=== PATIENT | female | born 1960 | race Caucasian/White ===

== ENCOUNTER 2019-10-17 08:42 | Outpatient (CLI) | payer OTHER, SELFPAY ==
--- NOTE | ~2019-10-17 | XR_ITS ---
XR UGIAC w small bowel DATE: 10/17/2019 11:00 INDICATION: Early satiety, diarrhea TECHNIQUE: Air-contrast upper gastrointestinal series and serial images of the small bowel, spot imag es of the terminal ileum. 1.4 minutes fluoroscopy time DAP: 70.68 133 images COMPARISON: None FINDINGS: Normal deglutition and esophageal peristalsis. No stricture, mucosal fold thickening, erosi on, ulceration or intraluminal mass lesion of the esophagus, stomach or duodenum is detected. The duo denal bulb is normally shaped, without scarring. Normal C-loop of the duodenum. There is normal trans it of contrast material through the small bowel. No mucosal fold thickening of the small bowel. No st ricture, obstruction, abnormal dilatation, diverticulum or intraluminal filling defect is evident. Th e terminal ileum appears normal. IMPRESSION: Normal examination Reviewed, dictated and finalized at Location [facility]. Reviewed, dictated and finalized at location A. IMPRESSION: Normal examination
== END 2019-10-17 08:43 | disposition home or self-care (01) ==
LOC: ANHIMG 08:44
PROVIDERS: PCP Internal Medicine; Visit Provider Internal Medicine
DX: R19.7 Diarrhea, unspecified (principal); R68.81 Early satiety
CPT/HCPCS: 74246; 74248

== ENCOUNTER 2019-10-20 08:33 | Outpatient (CLI) | payer OTHER, SELFPAY ==
--- NOTE | ~2019-10-20 | US_ITS ---
EXAMINATION: US abdomen complete DATE: 10/20/2019 09:13 INDICATION: Diarrhea, unspecified. TECHNIQUE: Multiple grayscale and Doppler ultrasound images of the abdomen were obtained. COMPARISON: None FINDINGS: The visualized portions of the head and body of the pancreas are normal. The liver is hieu l without focal lesion. There is normal flow in main portal vein. The gallbladder is normal in size. No gallstones or gallbladder wall thickening. There was no sonographic Griffin sign. The common duct i s normal and measures 4 mm. The kidneys are normal in size. The spleen is normal in size. IMPRESSION: 1. Normal complete abdomen ultrasound. Reviewed, dictated and finalized at location A.
== END 2019-10-20 08:34 | disposition home or self-care (01) ==
PROVIDERS: PCP Internal Medicine; Visit Provider Internal Medicine
DX: R19.7 Diarrhea, unspecified (principal)
CPT/HCPCS: 76700

== ENCOUNTER 2019-10-31 09:45 | Outpatient (CLI) | payer OTHER, SELFPAY ==
[2019-11-05 13:22] LABS: Reference Lab Test Result Negative
== END 2019-10-31 09:46 | disposition home or self-care (01) ==
PROVIDERS: PCP Internal Medicine; Visit Provider Internal Medicine
DX: Z20.828 Contact with and (suspected) exposure to other viral communicable diseases (principal)
CPT/HCPCS: 36415; 86769

== ENCOUNTER 2020-10-15 08:00 | Outpatient (CLI) | payer OTHER, SELFPAY ==
--- NOTE | 2020-11-11 20:19 | WPDSLEEPSTUD ---
Sleep Study Date of Study: 10/15/20 Ordering Provider: Cesar Jeffrey MD Interpreting Physician: Luma Manning MD Sleep Study Type: Polysomnogram Height: 1.73 m Weight: 90.945 kg Body Mass Index: 30.4 Neck Circumference (inches): 16 [place]: 7 Reason for Sleep Study Fatigue worse over the last 6 months, required Adderall and Vyvanse Sleep History Argenis Nieto is a 60 year old female Who has excessive fatigue during the day. She manages this with Vyvanse and Adderall as well as caffeine. This is worsened over the last 6 months. This is severely impacted her lifestyle. She wakes up throughout the night and has difficulty waking in the morning. She has used medications to get to sleep including Lunesta than trazodone. She uses medicines to stay awake including Vyvanse Adderall and caffeine pills. She rarely awakens from sleep feeling short of breath, rarely awakens at night with heartburn, belching or coughing. She occasionally snores occasionally loudly. She does not have trouble sleeping with a cold. She does not wake up gasping for breath at night. She rarely has breathing problems at night reported to her by others. She frequently sweats excessively at night. She does not notice her heart pounding or beating irregularly at night. She does not fall asleep during the day, does not fall asleep involuntarily or while driving. She does not have loss of muscle tone with strong emotion. She frequently has daytime difficulties due to her excessive sleepiness. She does not feel paralyzed on waking or falling asleep. She frequently has vivid dreamlike scenes upon awakening or falling asleep. She does not feel afraid to go to sleep. She frequently has nightmares and frequently remembers her dreams. She constantly has racing thoughts, feelings of sadness, depression and anxiety. She constantly has muscular tension. She rarely notices parts of her body jerking. She does not kick at night. She rarely has crawling and aching feelings in her legs. She occasionally has leg pain during the night. She does not have morning jaw pain. She rarely grinds her teeth during sleep. She constantly is bothered by pain during the day. She has never awakened by pain during the night. She constantly wakes up feeling stiff in the morning occasionally with sore achy muscles. She rarely wakes up with pain in the neck or spine. She has headaches, dizziness, and concentration difficulties. She never awakens feeling refreshed. She has heartburn and nasal allergies. She reports 8 lb increase in the last year. Normal bedtime is 10:30 p.m. falling asleep within 20 minutes using a sleeping pill. She wakes typically twice at night to urinate. On average she stays awake for 5 minutes. These awakenings occurred about 24 hours after going to sleep. She wakes in the morning by 6:00 a.m. but does not get out of bed until 8:00 a.m.. Her weekend schedule is the same. She estimates getting about 7 hours of sleep at night. She describes herself as an introvert so it takes energy for her to socialize. She is too tired to socialize due to her fatigue and excessive sleepiness. She takes naps in the afternoon or evening. A short nap may be refreshing. She is usually drowsy in the morning for 2 hours or longer. Habits: Never smoked tobacco. Caffeine 2 cups of coffee per day. She also takes caffeine pills at times. No alcohol or recreational drugs. REPLACED BY [facility] Past Medical History Medical History (Updated 11/11/20 @ 20:38 by Luma Manning MD) ADD (attention deficit disorder) Allergic symptoms BMI 32.0-32.9,adult Chronic pain syndrome Depression Elevated homocysteine Encounter for preventive health examination Encounter for routine adult health examination with abnormal findings Encounter for routine adult health examination without abnormal findings Encounter for vitamin deficiency screening Exposure to COVID-19 virus Fatigue Follow up Amari's disease H
[2020-11-11 20:22] VITALS: BMI 30.4
== END 2020-10-16 06:30 | disposition home or self-care (01) ==
LOC: ANHCSM 14:47
PROVIDERS: PCP Internal Medicine; Visit Provider Internal Medicine
DX: G47.10 Hypersomnia, unspecified (principal); R53.83 Other fatigue; R06.83 Snoring
CPT/HCPCS: 95810

== ENCOUNTER 2022-12-13 10:26 | Outpatient (CLI) | payer OTHER, SELFPAY ==
--- NOTE | 2022-12-13 11:30 | NEURO_ITS ---
Impression: # Complains of numbness in lower extremities. # Normal Nerve Conduction Study. # Mildly neurogenic Needle/EMG exam in right EDB. # Clinical correlation recommended, Higher involvement needs to be ruled out. Nerve Conduction Studies Anti Sensory Summary Table Stim Site NR Peak (ms) P-T Amp (?V) Site1 Site2 Delta-P (ms) Dist (cm) Torin (m/s) Left Sup Fibular Anti Sensory (Ant Lat Mall) NO RESPONSE 14 cm NR 14 cm Ant Lat Mall 16.0 Right Sup Fibular Anti Sensory (Ant Lat Mall) 14 cm 3.7 8.7 14 cm Ant Lat Mall 3.7 16.0 43 Left Sural Anti Sensory (Lat Mall) Calf 3.6 11.3 Calf Lat Mall 3.6 16.0 44 Right Sural Anti Sensory (Lat Mall) Calf 3.8 15.6 Calf Lat Mall 3.8 16.0 42 Motor Summary Table Stim Site NR Onset (ms) O-P Amp (mV) Site1 Site2 Delta-0 (ms) Dist (cm) Torin (m/s) Left Peroneal Motor (Vastus Med) Ankle 5.3 2.0 Popit Ankle 9.9 42.0 42 Popit 15.2 1.8 Right Peroneal Motor (Vastus Med) Ankle 5.9 1.1 Popit Ankle 9.9 44.0 44 Popit 15.8 0.9 Left Tibial Motor (Abd Silva Brev) Ankle 5.2 4.0 Knee Ankle 10.1 46.0 46 Knee 15.3 2.4 Right Tibial Motor (Abd Silva Brev) Ankle 5.8 4.7 Knee Ankle 10.1 44.0 44 Knee 15.9 3.3 F Wave Studies NR F-Lat (ms) L-R F-Lat (ms) Left Peroneal (Mrkrs) (EDB) 56.25 0.74 Right Peroneal (Mrkrs) (EDB) 56.99 0.74 Left Tibial (Mrkrs) (Abd Hallucis) 56.61 0.86 Right Tibial (Mrkrs) (Abd Hallucis) 57.47 0.86 EMG Side Muscle Nerve Root Ins Act Fibs Amp Dur Recrt Comment Right AntTibialis Dp Br Fibular L4-5 Nml Nml Nml Nml Nml Right Gastroc Tibial S1-2 Nml Nml Nml Nml Nml Right Fibularis Long Sup Br Fibular L5-S1 Nml Nml Nml Nml Nml Right Flex Dig Long Tibial L5-S2 Nml Nml Nml Nml Nml Right Ext Dig Brev Dp Br Fibular L5, S1 Nml Nml Incr >12ms Reduced Left AntTibialis Dp Br Fibular L4-5 Nml Nml Nml Nml Nml Left Gastroc Tibial S1-2 Nml Nml Nml Nml Nml Left Fibularis Long Sup Br Fibular L5-S1 Nml Nml Nml Nml Nml Left Flex Dig Long Tibial L5-S2 Nml Nml Nml Nml Nml Left Ext Dig Brev Dp Br Fibular L5, S1 Nml Nml Nml Nml Nml MTDD
[2022-12-13 11:46] LABS: HIV 1/2 Ab P24 Ag Result Negative (Negative)
[2022-12-13 11:55] LABS: Hepatitis C Virus Antibody Negative (Negative)
[2022-12-13 13:24] LABS: Rapid Plasma Reagin Non-Reactive (NonReactive)
== END 2022-12-13 10:27 | disposition home or self-care (01) ==
LOC: ANHNEURO 10:27
PROVIDERS: PCP Internal Medicine; Visit Provider Internal Medicine
DX: M54.30 Sciatica, unspecified side (principal); N89.8 Other specified noninflammatory disorders of vagina
CPT/HCPCS: 36415; 86592; 86703; 86803; 95886; 95910; G0432

== ENCOUNTER → 2023-01-04 12:52 | Outpatient (CLI) | payer OTHER, SELFPAY ==
--- NOTE | ~2023-01-04 | MR_ITS ---
EXAMINATION: MR lumbar spine wo con DATE: 01/04/2023 13:57 INDICATION: Anesthesia of skin TECHNIQUE: Magnetic resonance imaging (MRI) of the lumbar spine was performed without intravenous con trast. Sequences included sagittal T2-weighted FSE, sagittal T2-weighted FS FSE, sagittal T1-weighted FSE, and axial T2-weighted FSE. COMPARISON: None FINDINGS: Transitional partially lumbarized S1 segment. 1 mm retrolisthesis L2 on L3. 3 mm retrolisthesis L4 on L5. 10 degree lumbar dextrocurvature. Vertebral body heights are normal. Schmorl's node along the andersen perior endplate of L5. T1 hyperintense hemangiomas at L4 and L5. Mild to moderate disc height loss at L4-L5. Mild disc height loss at L3-L4 and L5-S1. 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 The c onus medullaris terminates at L1-L2. There is normal signal in the caudal spinal cord. Paravertebral soft tissues are unremarkable. The following disc levels are specifically discussed: T12-L1: The disc does not extend beyond the endplate margin. There is moderate bilateral facet joint osteoarthritis. There is no neural foraminal stenosis. There is no central canal stenosis. L1-L2: The disc does not extend beyond the endplate margin. There is moderate bilateral facet joint o steoarthritis. There is no neural foraminal stenosis. There is no central canal stenosis. L2-L3: Disc is minimally bulging. There is mild left and mild to moderate right facet joint osteoarth ritis. There is mild right and minimal left neural foraminal stenosis. There is minimal central canal stenosis. L3-L4: Disc is bulging. There is moderate left and severe right facet joint osteoarthritis. There is mild right and mild to moderate left neural foraminal stenosis. There is moderate to severe central c anal stenosis with minimal CSF signal surrounding the centrally clustered nerve roots. L4-L5: Disc is bulging. There is moderate bilateral facet joint osteoarthritis. There is moderate archana ateral neural foraminal stenosis. There is mild central canal stenosis. L5-S1: Disc is mildly bulging. There is moderate right and severe left facet joint osteoarthritis. Th ere is moderate left and mild to moderate right neural foraminal stenosis. There is no central canal stenosis. IMPRESSION: 1. Mild lumbar dextro scoliosis with moderate spondylosis most notable for moderate to severe central canal stenosis at L3-L4.. Reviewed, dictated and finalized at location A. IMPRESSION: 1. Mild lumbar dextro scoliosis with moderate spondylosis most notable for mode rate to severe central canal stenosis at L3-L4..
--- NOTE | ~2023-01-04 | MR_ITS ---
EXAMINATION: MR cervical spine wo con DATE: 01/04/2023 13:57 INDICATION: Anesthesia of skin. TECHNIQUE: Magnetic resonance imaging (MRI) of the cervical spine was performed without intravenous c ontrast. Sequences included sagittal T2-weighted FSE, sagittal T2-weighted FS FSE, sagittal T1-weight ed FSE, axial MERGE, and axial T2-weighted FSE. COMPARISON: None FINDINGS: There is 6 degrees levocurvature of cervicothoracic spine. There is kyphosis of cervical sp ine. There is mild chronic height loss of C5 vertebral body.. There is mildly decreased disc height a t C4-C5 and C5-C6, moderately decreased disc height at C6-C7. The spinal cord signal intensity is nor mal. The following disc levels are specifically discussed: C2-C3: The disc does not extend beyond the endplate margin. There is no uncovertebral joint osteoarth ritis. There is mild right and severe left facet joint osteoarthritis. There is mild left neural fora cathy stenosis. There is no central canal stenosis. C3-C4: The disc does not extend beyond the endplate margin. There is no uncovertebral joint osteoarth ritis. There is mild right and severe left facet joint osteoarthritis. There is mild left neural fora cathy stenosis. There is no central canal stenosis. C4-C5: The disc is bulging. There is mild bilateral uncovertebral joint osteoarthritis. There is mild bilateral facet joint osteoarthritis. There is mild bilateral neural foraminal stenosis. There is mi ld central canal stenosis. C5-C6: The disc is bulging. There is severe right and moderate left uncovertebral joint osteoarthriti s. There is moderate bilateral facet joint osteoarthritis. There is mild bilateral neural foraminal s tenosis. There is moderate central canal stenosis with ventral and dorsal indentation of the spinal c ord. C6-C7: The disc is bulging. There is severe bilateral uncovertebral joint osteoarthritis. There is se shala right and moderate left facet joint osteoarthritis. There is mild bilateral neural foraminal preston nosis. There is moderate central canal stenosis with ventral and dorsal indentation of the spinal cor d. C7-T1: There is a central extrusion. There is no uncovertebral joint osteoarthritis. There is severe bilateral facet joint osteoarthritis. There is mild bilateral neural foraminal stenosis. There is no central canal stenosis. IMPRESSION: 1. Moderate cervical spondylosis. Reviewed, dictated and finalized at location E.
== END ==
PROVIDERS: PCP Internal Medicine; Visit Provider Internal Medicine
DX: R20.0 Anesthesia of skin (principal); R20.2 Paresthesia of skin; M47.892 Other spondylosis, cervical region; M41.9 Scoliosis, unspecified
CPT/HCPCS: 72141; 72148

== ENCOUNTER 2023-06-14 14:05 | Outpatient (CLI) | payer OTHER, SELFPAY ==
--- NOTE | ~2023-06-14 | CT_ITS ---
EXAMINATION: CT abdomen pelvis w con DATE: 06/14/2023 14:41 INDICATION: Abdominal pain TECHNIQUE: Computed tomography (CT) of the abdomen and pelvis was performed with 100 cc Omnipaque 350 intravenous contrast. The dose-length product was 1044.22 mGy-cm. Automated exposure control and ite rative reconstruction technique were employed. COMPARISON: Ultrasound dated 10/20/2019. FINDINGS: Lung bases are unremarkable. Heart size is normal. No significant pleural or pericardial ef fusion. Small fat-containing umbilical hernia. There is a 1.6 cm hypovascular mass right hepatic lobe , image 44. Gallbladder is present. The spleen, pancreas, adrenal glands and kidneys are unremarkable . No free air or free fluid. Small fat-containing umbilical hernia. No acute osseous abnormality. The re is disc narrowing at L3-4 through L5-S1. There is multilevel facet hypertrophy. Nonobstructive bow el gas pattern. Normal appendix. No abnormal pelvic masses or fluid collections. IMPRESSION: 1. No acute abdominal abnormality. 2: Hypovascular 1.6 cm liver mass right hepatic lobe, nonspecific. Recommend correlation with dynamic contrast-enhanced MRI abdomen without and with contrast. Reviewed, dictated and finalized at location A. IMPRESSION: 1. No acute abdominal abnormality. 2: Hypovascular 1.6 cm liver mass right hepatic lobe, nonspecific. Recommend co rrelation with dynamic contrast-enhanced MRI abdomen without and with contrast.
== END 2023-06-14 14:06 | disposition home or self-care (01) ==
PROVIDERS: PCP Internal Medicine; Visit Provider Internal Medicine
DX: R10.9 Unspecified abdominal pain (principal)
CPT/HCPCS: 74177; Q9967

== ENCOUNTER 2023-06-16 08:39 | Outpatient (CLI) | payer OTHER, SELFPAY ==
--- NOTE | ~2023-06-16 | XR_ITS ---
EXAMINATION: XR UGIAC w small bowel DATE: 06/16/2023 10:33 INDICATION: Unspecified abdominal pain. Nausea. TECHNIQUE: The patient drank thick barium, gas-producing crystals, and thin barium. Fluoroscopy of th e esophagus, stomach, and small bowel was performed. Fluoroscopy exposure time was 0.6 minutes. Radio graphs of the abdomen were obtained. The total number of images was 201. COMPARISON: CT abdomen and pelvis 06/14/2023 FINDINGS: UPPER GASTROINTESTINAL SERIES: There is no mass or stricture of the esophagus. Esophageal motility is normal. There is no hiatal her margarita. There was no gastroesophageal reflux with provocative maneuvers. The stomach shows a normal fold ing pattern. SMALL BOWEL SERIES: The small bowel shows a normal folding pattern. Specifically, the terminal ileum is normal. Transit t yohan to the colon was 1 hour 15 minutes. IMPRESSION: 1. Normal upper gastrointestinal series. 2. Normal small bowel series. Reviewed, dictated and finalized at location A.
== END 2023-06-16 08:40 | disposition home or self-care (01) ==
PROVIDERS: PCP Internal Medicine; Visit Provider Internal Medicine
DX: R10.9 Unspecified abdominal pain (principal); R11.0 Nausea
CPT/HCPCS: 74246; 74248

== ENCOUNTER 2023-07-03 15:24 | Outpatient (CLI) | payer OTHER, SELFPAY ==
--- NOTE | ~2023-07-03 | MR_ITS ---
EXAMINATION: MR abdomen wo/w con DATE: 07/03/2023 16:25 INDICATION: Hepatomegaly, not elsewhere classified. Abdominal pain. Abdominal distention. TECHNIQUE: Magnetic resonance imaging (MRI) of the abdomen was performed without and with 18 mL Multi Chito intravenous contrast. COMPARISON: CT abdomen and pelvis 06/14/2023 FINDINGS: There is diffuse hepatic steatosis. In the right hepatic lobe, there is a 2.4 cm mass with interrupte d peripheral puddling of contrast, consistent with a hemangioma. In the right hepatic lobe, there is a 10 mm mass with delayed hyperenhancement, likely a hemangioma. There is sludge in the gallbladder, which is normal in size. The spleen, pancreas, and adrenal glands are normal. There are cysts in the kidneys measuring up to 7 mm on the left. There are no dilated loops of bowel. There are no pathologi chyna enlarged lymph nodes. There is no free intraperitoneal fluid. IMPRESSION: 1. Two liver masses, consistent with hemangiomas. Reviewed, dictated and finalized at location A.
== END 2023-07-03 15:25 | disposition home or self-care (01) ==
PROVIDERS: PCP Internal Medicine; Visit Provider Internal Medicine
DX: R16.0 Hepatomegaly, not elsewhere classified (principal); K76.9 Liver disease, unspecified
CPT/HCPCS: 74183; A9577

== ENCOUNTER 2023-07-13 09:36 | Outpatient (CLI) | payer OTHER, SELFPAY ==
--- NOTE | ~2023-07-13 | NM_ITS ---
EXAMINATION: NM hepatobiliary w pharm DATE: 07/13/2023 12:07 INDICATION: Other specified diseases of gallbladder. COMPARISON: Abdomen MRI 07/03/2023 TECHNIQUE: 4.64 mCi Tc-99m mebrofenin (Choletec) was administered intravenously. Scintigraphic image s of the abdomen were obtained for one hour. Then, 2.0 mcg sincalide (Kinevac) IV was administered, a nd imaging was continued for 30 minutes. FINDINGS: There is normal clearance of radiotracer from the blood pool. There is homogeneous tracer u ptake by the liver. Activity progresses to the bowel and gallbladder. Gallbladder ejection fraction (GBEF) was 84%. Note that most patients with gallbladder dysfunction have GBEF < 35%, which overlaps with the broad normal range of 10-90%. IMPRESSION: 1. Normal hepatobiliary scintigraphy. Reviewed, dictated and finalized at location A.
== END 2023-07-13 09:37 | disposition home or self-care (01) ==
LOC: ANHIMG 09:38
PROVIDERS: PCP Internal Medicine; Visit Provider Internal Medicine
DX: K82.8 Other specified diseases of gallbladder (principal); R10.9 Unspecified abdominal pain
CPT/HCPCS: 78227; A9537; J2805

== ENCOUNTER 2024-02-06 13:40 | Outpatient (CLI) | payer OTHER, SELFPAY ==
--- NOTE | ~2024-02-06 | MR_ITS ---
EXAMINATION: MR lumbar spine wo con DATE: 02/06/2024 14:07 INDICATION: Low back pain. Lumbar radiculopathy. TECHNIQUE: Magnetic resonance imaging (MRI) of the lumbar spine was performed without intravenous con trast. Sequences included sagittal T2-weighted FSE, sagittal T2-weighted FS FSE, sagittal T1-weighted FSE, and axial T2-weighted FSE. COMPARISON: Lumbar spine MRI 01/04/2023 FINDINGS: There is 9 degrees dextrocurvature of lumbar spine. S1 is a transitional segment. There are Schmorl's nodes at multiple levels. There is moderately decreased disc height at L3-L4, L4-L5, and L 5-S1. The distal spinal cord signal intensity is normal. The conus medullaris is at L1. There are Tar néstor cysts at S2 and S3. The following disc levels are specifically discussed: L1-L2: The disc does not extend beyond the endplate margin. There is mild right and moderate left fac et joint osteoarthritis. There is no neural foraminal stenosis. There is no central canal stenosis. L2-L3: The disc does not extend beyond the endplate margin. There is mild bilateral facet joint osteo arthritis. There is no neural foraminal stenosis. There is no central canal stenosis. L3-L4: The disc is bulging and has an annular fissure. There is severe bilateral facet joint osteoart hritis. There is mild bilateral neural foraminal stenosis. There is mild central canal stenosis. L4-L5: The disc is bulging. There is mild right and moderate left facet joint osteoarthritis. There i s mild bilateral neural foraminal stenosis. There is mild central canal stenosis. L5-S1: The disc is bulging and has an annular fissure. There is severe bilateral facet joint osteoart hritis. There is mild bilateral neural foraminal stenosis. There is mild central canal stenosis. IMPRESSION: 1. Moderate lumbar spondylosis, stable from 01/04/2023. Reviewed, dictated and finalized at location A. ING MACHINE OPERATOR
== END 2024-02-06 13:41 | disposition home or self-care (01) ==
LOC: GOSHIMG 13:40
PROVIDERS: PCP Internal Medicine; Visit Provider Nurse Practitioner Family
DX: M47.26 Other spondylosis with radiculopathy, lumbar region (principal)
CPT/HCPCS: 72148

== ENCOUNTER 2024-02-08 11:06 | Outpatient (CLI) | payer OTHER, SELFPAY ==
--- NOTE | ~2024-02-08 | XR_ITS ---
Right Knee Technique: AP, lateral, and sunrise views were obtained. Clinical History: Pain Findings: No fracture or dislocation is seen. Osseous alignment is anatomic. Joint spaces are preserv ed, with minimal patellar spurring. Soft tissues are unremarkable. No joint effusion is seen. Impression: Minimal patellar spurring. Reviewed, dictated and finalized at location . GER CHANGE Impression: Minimal patellar spurring.
--- NOTE | ~2024-02-08 | XR_ITS ---
AP view of the pelvis and AP and lateral views of the bilateral hips Clinical history: Pain Findings: No acute fracture or dislocation is seen. Osseous alignment is anatomic. Bilateral hip and SI joint spaces are preserved. There is minimal spurring at the left superolateral acetabular margin. Soft tissues are unremarkable. Impression: Minimal spurring of the left hip joint, as above. Reviewed, dictated and finalized at location M. ILLERY SUPERVISOR Impression: Minimal spurring of the left hip joint, as above.
--- NOTE | ~2024-02-08 | XR_ITS ---
Left Knee Technique: AP, lateral, and sunrise views were obtained. Clinical History: Pain Findings: No fracture or dislocation is seen. Osseous alignment is anatomic. Joint spaces are preserv ed, with minimal patellar spurring. Soft tissues are unremarkable. No joint effusion is seen. Impression: Minimal patellar spurring. Reviewed, dictated and finalized at location . ETING DEVELOPMENT MANAGER Impression: Minimal patellar spurring.
== END 2024-02-08 11:07 | disposition home or self-care (01) ==
PROVIDERS: PCP Internal Medicine; Visit Provider Internal Medicine
DX: M25.762 Osteophyte, left knee (principal); M25.752 Osteophyte, left hip
CPT/HCPCS: 73521; 73562

== ENCOUNTER 2025-02-10 16:08 | Outpatient (CLI) | payer OTHER, SELFPAY ==
--- NOTE | ~2025-02-10 | XR_ITS ---
EXAM/PROCEDURE: [id number] HISTORY: Pain in right toe(s) x 3 months, no inj, no surg COMPARISON: None available. TECHNIQUE: Right foot x-rays with weightbearing FINDINGS: No fracture subluxation or dislocation seen. No acute or aggressive bony or soft tissue process. No radiopaque foreign body. Borderline metatarsus primus varus and hallux valgus deformities. On the weightbearing lateral view, borderline pes cavus deformity. Moderate size enthesophyte at the Achilles tendon insertion. IMPRESSION: No acute findings. Several chronic findings as above. Reviewed, dictated and finalized at location A. RY PLANER SET UP OPERATOR
== END 2025-02-10 16:09 | disposition home or self-care (01) ==
LOC: GOSHIMG 16:09
PROVIDERS: PCP Internal Medicine; Visit Provider Internal Medicine
DX: M79.674 Pain in right toe(s) (principal); M79.89 Other specified soft tissue disorders
CPT/HCPCS: 73630